=== PATIENT | female | born 1960 | race Caucasian/White ===

== ENCOUNTER 2023-02-20 13:49 | Outpatient (CLI) | payer OTHER | END 2023-02-20 13:50 | disposition home or self-care (01) | LOC: CSHMAMMO 13:49 | PROVIDERS: ATTEND Obstetrics & Gynecology | DX: Z12.31 Encounter for screening mammogram for malignant neoplasm of breast (principal) | CPT/HCPCS: 77063; 77067 ==

== ENCOUNTER 2025-03-25 09:03 | Outpatient (CLI) | payer OTHER | END 2025-03-25 09:04 | disposition home or self-care (01) | LOC: CSHMAMMO 09:03 | PROVIDERS: ATTEND Obstetrics & Gynecology | DX: Z12.31 Encounter for screening mammogram for malignant neoplasm of breast (principal) | CPT/HCPCS: 77063; 77067 ==